=== PATIENT | female | born 1940 | race Asian ===

== ENCOUNTER 2019-10-15 10:28 | Emergency (ER) | payer BC ==
[~2019-10-15] VITALS: Ht 152.4 cm; Wt 49.0 kg
[2019-10-15 10:48] VITALS: BP 116/72
[2019-10-15] MEDS ORDERED: TETANUS AND DIPHTHERIA TOX/PF 0.5ML SYR (ADULT) IM ONE (12:15)
[2019-10-15] MEDS ORDERED: IBUPROFEN 400MG TABLET PO ONE (12:15)
== END 2019-10-15 13:10 | disposition home or self-care (01) ==
LOC: ER 10:28
DX: L03.113 Cellulitis of right upper limb (principal); Z90.710 Acquired absence of both cervix and uterus
CPT/HCPCS: 90471; 90714; 99283